=== PATIENT | female | born 1985 | race Caucasian/White ===

== ENCOUNTER → 2021-01-06 11:24 | Outpatient (CLI) | payer OTHER, SELFPAY ==
--- NOTE | ~2021-01-06 | US_ITS ---
EXAMINATION: US pelvic complete DATE: 01/06/2021 11:50 INDICATION: Abnormal uterine bleeding TECHNIQUE: Multiple transabdominal sonographic images of the pelvis were obtained. COMPARISON: None. FINDINGS: The uterus measures 8.5 x 3.1 x 4.9 cm. The endometrial complex measures 7 mm. The right ov [place] measures 2.5 x 1.6 x 1.7 cm. The left ovary measures 1.9 x 1.8 x 2 cm. There is normal vascular f low in the ovaries. There is no free fluid in the pelvis. IMPRESSION: 1. No sonographic correlate for the patient's symptoms. Reviewed, dictated and finalized at location A. [facility]
== END ==
PROVIDERS: Visit Provider Nurse Practitioner
DX: N93.8 Other specified abnormal uterine and vaginal bleeding (principal)
CPT/HCPCS: 76856

== ENCOUNTER → 2021-01-13 02:26 | Outpatient (CLI) | payer OTHER, SELFPAY ==
[2021-01-13 19:28] LABS: SARS-CoV-2 RNA PCR Negative
== END ==
PROVIDERS: Visit Provider Obstetrics & Gynecology Gynecology
DX: Z01.812 Encounter for preprocedural laboratory examination (principal); Z20.822 Contact with and (suspected) exposure to COVID-19
CPT/HCPCS: C9803; U0003; U0005

== ENCOUNTER 2021-01-16 01:48 | Day surgery (SDC) | payer OTHER, SELFPAY ==
[2021-01-04 13:31] VITALS: BMI 19.3
--- NOTE | 2021-01-13 14:43 | P.PNAN_ITS ---
Anes - Initial Pre Proc Eval Procedure: Operation Date: 01/16/21 08:30 Proposed Procedures p Hysteroscopy Dilation and Curettage - Dilma García MD Date/Time: 01/13/21 14:43 Surgeon: Dilma García MD Pre Op Diagnosis: abnormal uterine bleeding Patient Data Age: 35 Gender: F Height: 1.63 m Weight: 51 kg Allergies Allergy/AdvReac Type Severity Reaction Status Date / Time codeine Allergy Unknown Nausea and Verified 01/04/21 13:27 Vomiting Home Medications Medication Instructions Recorded Confirmed Type lamotrigine [Lamictal] 100 mg PO BID 10/31/19 01/04/21 History topiramate 50 mg PO BID 10/31/19 01/04/21 History levetiracetam 250 mg PO BID 01/04/21 01/04/21 History Patient hx anesthesia problems: none Family hx anesthesia problems: none [facility] Past Medical History Medical History (Updated 01/16/21 @ 07:00 by Riley Moran DO) Seizure grand mal - none since 2004 controlled with medication Surgical History Surgical History (Updated 01/13/21 @ 14:44 by Riley Moran DO) History of x2 History of tonsillectomy Social History Social History Smoking status: Never smoker Living arrangements: with family Spiritual care concerns: No Anes - Eval Final PreProcedure Day of Procedure 01/13/21 14:43 Patient weight: thin Heart: regular rate and rhythm Lungs: clear to auscultation and normal air movement Airway: Mallampati scale class II Neurological: alert and oriented Last oral intake: >/= 8 hours ASA classification: III Emergent: no Anesthetic plan: proceed Anesthesia type and monitoring: general GIVS and standard monitoring Informed Consent: The patient's anesthetic plan and its attendant risks and benefits were discussed with the patient/family/POA. Questions were solicited a nd answers provided to the satisfaction of the patient/family/POA.
[2021-01-16] MEDS: LACTATED RINGERS 1,000 ML 30 ML IV CONT (07:00)
[2021-01-16] MEDS: ACETAMINOPHEN 500 MG TABLET 1000 MG PO (07:00)
--- NOTE | 2021-01-16 07:22 | WPDHPUPDATE1 ---
History and Physical Update Update Date/Time: 01/16/21 07:22 History and Physical has been reviewed, including an updated exam of the patient. There are NO changes in the patient's condition. Risks, benefits, and alternatives have been discussed and questions answered. Patient agrees to proceed with procedure.
--- NOTE | 2021-01-16 07:22 | PM.HPGS ---
History of Present Illness History of Present Illness Consent: Risks, benefits, and alternatives have been discussed and questions answered. Patient agrees to proceed with procedure. Chief complaint: abnormal uterine bleeding Narrative: Berkley Hunt is a 35 year old female with abnormal menstrual cycles. She bleeds for approximately 9 to 14 days per month. Cycles are regular and bleeding is approximately 4 tampons per day. Pelvic ultrasound was performed and is normal. It is recommended to proceed with D&C hysteroscopy for further evaluation. Patient agrees to the plan and questions are answered. Risks of infection, bleeding, perforation, and possible pathology are reviewed. Review of Systems Review of Systems: Narrative: not repeated day of surgery; patient states no changes in status PMFSH Past Medical History Medical History (Updated 01/16/21 @ 07:24 by Dilma García MD) Seizure grand mal - none since 2004 controlled with medication Surgical History Surgical History (Updated 01/13/21 @ 14:44 by Riley Moran DO) History of x2 History of tonsillectomy Social History Social History Smoking status: Never smoker Living arrangements: with family Spiritual care concerns: No Meds Home Medications and Allergies Home Medications Medication Instructions Recorded Confirmed Type lamotrigine [Lamictal] 100 mg PO BID 10/31/19 01/04/21 History topiramate 50 mg PO BID 10/31/19 01/04/21 History levetiracetam 250 mg PO BID 01/04/21 01/04/21 History Allergies Allergy/AdvReac Type Severity Reaction Status Date / Time codeine Allergy Unknown Nausea and Verified 01/04/21 13:27 Vomiting Exam Const: General: healthy appearing and alert Orientation/consciousness: patient oriented x3 Resp: Effort & Inspection: normal respiratory effort Auscultation: clear to auscultation bilaterally Cardio: Rate: regular rate Rhythm: regular rhythm GI: GI Palp: Yes Soft to palpation, No Tenderness to palpation present (GI) and No Palpable mass present : External Female Exam: normal external appearance Speculum Exam - Vagina: normal appearance of the vagina and normal vaginal discharge Speculum Exam - Cervix: normal appearance of the cervix Bimanual exam- vagina & uterus: uterine size normal and consistency normal Bimanual Exam- Adnexa, other: normal adnexae and No adnexal tenderness Neuro: General: patient oriented x3 Assessment and Plan Assessment and plan (1) Menorrhagia: Code(s): N92.0 - Excessive and frequent menstruation with regular cycle Status: Acute Assessment and Plan: plan is to proceed with D&C hysteroscopy
[2021-01-16 07:54] VITALS: BP 106/64; PULSE 123; RESP 18; TEMP 37.5; O2SAT 100
--- NOTE | 2021-01-16 08:46 | P.OP_ITS ---
Procedure Note - Detailed Date of procedure: 01/16/21 Pre-op diagnosis: abnormal uterine bleeding Post-op diagnosis: same Procedure performed: D&C hysteroscopy Description of procedure: The patient was taken to the operating room placed under anesthesia in the dorsal lithotomy position. She was prepped and draped in the usual sterile fashion. [place] speculum was placed in the vagina and the cervix was grasped on the anterior lip with a tenaculum. Cervix is injected with 1% lidocaine in each quadrant. The uterus is sounded to 7cm. The cervix is serially dilated with Hegar. The diagnostic hysteroscope was placed with no abnormalities noted. The hysteroscope was removed and the medium sharp curette used to sharply curette the endometrium until a good uterine cry was noted in all areas. Minimal material is obtained. All instruments are removed. The patient is awakened from anesthesia and taken to recovery in stable condition. Sponge, needles, and instruments counts are correct. Anesthesia: MAC and local Surgeon: Dilma García MD Estimated blood loss (mL): 5 Drains: No Packing: No Pathology: yes (endometrial) Complications: No immediate complications Condition: stable Disposition: PACU Findings: uterus 7 cm; grossly normal appearing endometium
[2021-01-16 08:50] VITALS: BP 104/62; PULSE 94; RESP 14; O2SAT 100
[2021-01-16 09:20] VITALS: BP 90/62; PULSE 92; RESP 14
[2021-01-16] MEDS: KETOROLAC 30 MG/ML VIAL (*BKC) IV PUSH (09:35)
[2021-01-16 09:50] VITALS: BP 93/61; PULSE 90; RESP 14
== END 2021-01-16 10:00 | disposition home or self-care (01) ==
PROVIDERS: PCP Internal Medicine Infectious Disease; Visit Provider Obstetrics & Gynecology Gynecology
PROC: 0U5B8ZZ Destruction of Endometrium, Via Natural or Artificial Opening Endoscopic (ICD-10-PCS; CPT 58563; principal; 2021-01-16 08:30)
DX: N92.0 Excessive and frequent menstruation with regular cycle (principal)
CPT/HCPCS: 58558; 88305; A9270; C9803; J1885; J2250; J2704; J3010; J7030; J7120; U0003; U0005

== ENCOUNTER 2024-11-26 09:54 | Outpatient (CLI) | payer OTHER, SELFPAY ==
--- NOTE | ~2024-11-26 | US_ITS ---
EXAMINATION: US OB <= 14 weeks fetus DATE: 11/26/2024 10:14 INDICATION: Uncertain dating of during first trimester TECHNIQUE: Real-time pelvic ultrasound utilizing transabdominal probe was performed. The tito jacobo radiologist was not present for the study. COMPARISON: None. FINDINGS: The uterus measures 12.2 x 5.2 x 7.2 cm. There is an intrauterine gestational sac. A yolk sac and fe romana pole are identified. The crown rump length measures 1.7 cm, which correlates with an estimated ge stational age of 8 weeks and 0 days. heart motion is identified measuring 161 beats per minute (bpm) by M-mode Doppler. The right ovary measures 3.0 x 2.1 x 1.9 cm. The left ovary measures 5.2 x 2.7 x 2.6 cm. 5 couple ane choic cysts/follicles measuring up to 1.9 cm in the left ovary. There is no free fluid in the pelvis. IMPRESSION: 1. Single living fetus with heart rate of 161 bpm. 2. Gestational age by ultrasound of 8 weeks 0 day(s) +/- 5 day(s) with ultrasound estimated date of delivery ([facility]) of 07/08/2025. Reviewed, dictated and finalized at location B. [facility] CAREGIVER IMPRESSION: 1. Single living fetus with heart rate of 161 bpm. 2. Gestational age by ultrasound of 8 weeks 0 day(s) +/- 5 day(s) with ultraso und estimated date of delivery ([facility]) of 07/08/2025.
== END 2024-11-26 09:55 | disposition home or self-care (01) ==
PROVIDERS: PCP Obstetrics & Gynecology Gynecology; Visit Provider Obstetrics & Gynecology Gynecology
DX: Z36.87 Encounter for antenatal screening for uncertain dates (principal); Z3A.08 8 weeks gestation of pregnancy
CPT/HCPCS: 76801

== ENCOUNTER 2025-06-29 10:22 | Outpatient (CLI) | payer OTHER, SELFPAY ==
--- OUTSIDE RECORDS SUMMARY | 2025-06-29 11:00 | XMS_ITS | Encounter Summary ---
Author Organization [facility] Address [address] [place] [address] Phone Care Team Providers Care Diesel Locomotive Engineer Name Role Phone Kyree Garcia MD Primary Care Provider [phone] Harvey Coppola MD Primary Care Provider [phone]- [phone] Encounter Details Date Type Department Care Team (Late st Contact Info) Description 06/17/2017 Orders Only [facility] [address] [place] [address] Kyree Garcia MD [address] [address] Routine general medical examination at a health care facility (Primary Dx) Social History Tobacco Use Types Packs/Day Years Used Date Smoking Tobacco: Never Assessed Comments Unknown Sex and Gender Information Value Date Recorded Sex Assigned at Not on file 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 Gender Identity Not on file Sexual Orientation Not on file documented as of this encounter Plan of Treatment Not on file documented as of this encounter Procedures Procedure Name Priority Date/Time Associated Diagnosis Comments CBC WITH AUTO DIFFERENTIAL Routine 01/29/2018 7:40 AM CDT Routine general medical examination at a health care facility VITAMIN B12 Routine 01/29/2018 7:40 AM CDT Routine general medical examination at a health care facility LIPID PANEL Routine 01/29/2018 7:40 AM CDT Routine general medical examination at a [facility] care facility COMPREHENSIVE METABOLIC PANEL Routine 01/29/2018 7:40 AM CDT Routine general medical examination at a [facility] facility documented in this encounter Results * Vitamin B12 (01/29/2018 7:40 AM CDT) Vitamin B12 409 200 - 1,100 pg/mL [facility] Blood specimen (specimen) 01/29/2018 7:40 AM CDT 01/29/2018 7:41 AM CDT Narrative [facility] - 01/30/2018 2:38 AM CDT FASTING:YES FASTING: YES Resulting Agency Comment Performing Organization Information: Site ID: [id number] Name: [facility] Address: [address] [place] [id number] Director: Harvey Baum D.O., MPH us Kyree Garcia MD LAB BLOOD ORDERABLES Final Result [facility] [place], [place] * Lipid panel (01/29/2018 7:40 AM CDT) Pathologist [facility] Cholesterol 182 <200 mg/dL [facility] [place] HDL 92 >50 mg/dL [facility] Triglycerides 59 <150 mg/dL [facility] [place] LDL 76 mg/dL (calc) [facility] Comment: Reference range: <100 Desirable range <100 mg/dL for patients with CHD or diabetes and <70 mg/dL for diabetic patients with known heart disease. LDL-C is now calculated using the Andrae-Steven calculation, which is a validated novel method providing better accuracy than the Friedewald equation in the estimation of LDL-C. Andrae SS et al. CASTRO. 2013;310(19): 8371-8508 (http://education.GateGuru/faq/ZAS051) Chol/HDL ratio 2.0 <5.0 (calc) [facility] [place] Non-HDL, (LDL+VLDL) 90 <130 mg/dL (calc) [facility] [place] Comment: For patients with diabetes plus 1 major ASCVD risk factor, treating to a non-HDL-C goal of <100 mg/dL (LDL-C of <70 mg/dL) is considered a therapeutic option. Blood specimen (specimen) 01/29/2018 7:40 AM CDT 01/29/2018 7:41 AM CDT Narrative [facility] - 01/30/2018 2:38 AM CDT FASTING:YES FASTING: YES Resulting Agency Comment Performing Organization Information: Site ID: [id number] Name: [facility] Address: [address] [place] [address] Director: Harvey Baum D.O., MPH us Kyree Garcia MD LAB BLOOD ORDERABLES Final Result [facility] [place] Garcia * (ABNORMAL) Comprehensive metabolic panel (01/29/2018 7:40 AM CDT) Glucose 78 65 - 99 mg/dL [facility] [place] Comment: Fasting reference interval BUN 19 7 - 25 mg/dL [facility] [place] Creatinine 0.82 0.50 - 1.10 mg/dL [facility] [place] eGFR NON-AFR. AUSTRIAN 95 > OR = 60 mL/min/1. 73m2 [facility] [place] EGFR 111 > OR = 60 mL/min/1. 73m2 [facility] [place] BUN/creat ratio NOT APPLICABLE 6 - 22 (calc) [facility] [place] Sodium 140 135 - 146 mmol/L [facility] [place] Potassium, pl 4.1 3.5 - 5.3 mmol/L [facility] [place] Chloride 109 98 - 110 mmol/L [facility] [place] CO2 24 20 - 31 mmol/L [facility] [place] Calcium 9.7 8.6 - 10.2 mg/dL [facility] [place] Protein, sr 7.9 6.1 - 8.1 g/dL [facility] [place] Albumin 5.2(H) 3.6 - 5.1 g/dL [facility] [place] GLOBULIN 2.7 1.9 - 3.7 g/dL (calc) [facility] [place] Alb/glob ratio 1.9 1.0 - 2.5 (calc) [facility] [place] Bilirubin, total 0.4 0.2 - 1.2 mg/dL [facility] [place] Alk phos 88 33 - 115 U/L [facility] [place] AST 24 10 - 30 U/L [facility] [place] ALT (SGPT) 28 6 - 29 U/L [facility] [place] Blood specimen (specimen) 01/29/2018 7:40 AM CDT 01/29/2018 7:41 AM CDT Narrative [facility] - 01/30/2018 2:38 AM CDT FASTING:YES FASTING: YES Resulting Agency Comment Performing Organization Information: Site ID: [id number] Name: [employer] [facility] Address: [address] [address] Director: Harvey Baum D.O., MPH us Kyree Garcia MD LAB BLOOD ORDERABLES Final Result [facility] [place] Garcia * (ABNORMAL) CBC with auto differential (01/29/2018 7:40 AM CDT) WBC 3.6(L) 3.8 - 10.8 Thousand/ uL [facility] [place] RBC, POC 4.52 3.80 - 5.10 Million/u L [facility] [place] Hgb 13.4 11.7 - 15.5 g/dL [facility] [place] Hct 40.6 35.0 - 45.0 % [facility] [place] MCV 89.8 80.0 - 100.0 fL [facility] [place] MCH 29.6 27.0 - 33.0 pg [facility] [place] MCHC 33.0 32.0 - 36.0 g/dL [facility] [place] Rdw 12.7 11.0 - 15.0 % [facility] [place] Platelets 195 140 - 400 Thousand/ uL [facility] [place] MPV 10.3 7.5 - 12.5 fL [facility] [place] Neutrophils, abs 1,692 1,500 - 7,800 cells/uL [facility] [place] Neutrophil bands, abs CANCELED 0 - 750 cells/uL [facility] [place] Comment:Result canceled by t he ancillary Metamyelocytes, abs CANCELED 0 cells/uL [facility] [place] Comment:Result canceled by t he ancillary Absolute Myelocytes CANCELED 0 cells/uL [facility] [place] Comment:Result canceled by t he ancillary Promyelocytes, abs CANCELED 0 cells/uL [facility] [place] Comment:Result canceled by t he ancillary Lymphocytes, abs 1,357 850 - 3,900 cells/uL [facility] [place] Monocyte abs 439 200 - 950 cells/uL [facility] [place] Eosinophils, abs 90 15 - 500 cells/uL [facility] [place] Basophils, abs 22 0 - 200 cells/uL [facility] [place] Blast, cell CANCELED 0 cells/uL [facility] [place] Comment:Result canceled by t he ancillary NRBC abs CANCELED 0 cells/uL [facility] [place] Comment:Result canceled by t he ancillary Neutrophils 47 % [facility] [place] Neutrophilic bands CANCELED % [facility] [place] Comment:Result canceled by t he ancillary Metamyelocyte pct CANCELED % [facility] [place] Comment:Result canceled by t he ancillary Myelocyte pct CANCELED % [facility] [place] Comment:Result canceled by t he ancillary Promyelocyte pct CANCELED % [facility] [place] Comment:Result canceled by t he ancillary Lymphocyte pct 37.7 % [facility] [place] Reactive lymph CANCELED 0 - 10 % [facility] [place] Comment:Result canceled by t he ancillary Monocytes 12.2 % [facility] [place] Eosinophils 2.5 % [facility] [place] Basophils 0.6 % [facility] [place] Blast pct CANCELED % [facility] [place] Comment:Result canceled by t he ancillary NRBC CANCELED 0 /100 WBC [facility] [place] Comment:Result canceled by t he ancillary Comment CANCELED [facility] [place] Comment:Result canceled by t he ancillary Blood specimen (specimen) 01/29/2018 7:40 AM CDT 01/29/2018 7:41 AM CDT Narrative [facility] - 01/30/2018 2:38 AM CDT FASTING:YES FASTING: YES Resulting Agency Comment Performing Organization Information: Site ID: [id number] Name: [facility] Address: [address] [address] Director: Harvey Baum D.O., MPH us Kyree Garcia MD LAB BLOOD ORDERABLES Final Result [facility] [place] documented in this encounter Visit Diagnoses Diagnosis Routine general medical examination at a health care facility- Primary documented in this encounter Care Teams Diesel Locomotive Engineer Relationship Specialty Start Date End Date Kyree Garcia MD [address] [place] [address] PCP - General 09/15/15 04/01/23 Harvey Coppola MD [address] [place] [address] PCP - General Internal Medicine 04/02/23 documented as of this encounter
--- OUTSIDE RECORDS SUMMARY | 2025-06-29 11:00 | XMS_ITS | Clinical Summary ---
Author Organization [facility] [address] Address [address] [place] [address] Phone Care Team Providers Care Sales Operations Coordinator Name Role Phone Harvey Coppola MD Primary Care Provider [phone] Allergies Active Allergy Reactions Criticality Noted Date Comments Codeine Medications levETIRAcetam (KEPPRA) 500 mg tablet Take 1 tablet (500 mg total) by mouth 2 (two) times a day 180 tablet 1 04/21/2025 Active lamoTRIgine (LaMICtal) 100 mg tabletIndicatio ns:Generalized tonic clonic epilepsy (HCC) Take 3.5 tablets (350 mg total) by mouth 2 (two) times a day 630 tablet 05/18/2025 5 Active Active Problems Problem Noted Date Diagnosed Date Encounter for preventive health examination 01/26 Assessment & Plan (04/28/2024 10:14 AM CDT): 38-year-old for annual exam she feels well the been no significant health changes since her last visit with me. Patient is current with a gynecological exam. Request a hepatitis-C antibody at this time Assessment & Plan (04/22/2023 10:51 AM CDT): 37-year-old lady here for annual exam. Advised me she is not seen a physician for approximate 5 years.. Medical history significant for seizures starting in his teens approximate 16-17 years old. And she also has essential/familial tremor management of seizures through [facility]. Patient is very stable no recent seizures since onset in her mid teen years. This patient has not had any lab work in the last 5 years. 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 Dr. 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 On antiseizure medication that may benefit her tremors. Encounters Date Type Department Care Team Description 04/26/2025 Telephone [facility] Medicine Epilepsy [address]th [place] [address] [place] [address] Juan Neri MD PhD from Last 3 Months Immunizations Immunization Administration Dates Next Due Influenza, Quadrivalent, Spl it, Preservative Free, Intramuscular 08/22/2021,08/04/2019,08/21/2018 Influenza, Trivalent, IM (MDV) 07/11/2016,2013,08/21/2012 Influenza, Unspecified 07/28/2023(Deferr ed: Patient decision),07/20/2020,08/03/2019 Tdap 04/27/2024 Social History Tobacco Use Types Packs/Day Years Used Date Smoking Tobacco: Never Smokeless Tobacco: Never Tobacco Cessation:Counseling Given: Not Answered PHQ-2 Answer Date Recorded PHQ-2 Total Score (If total score is 3 or more points, staff should administer the PHQ-9) 0 04/27/2024 Comments Unknown Sex and Gender Information Value Date Recorded Sex Assigned at Not on file 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 Gender Identity Not on file Sexual Orientation Not on file Obstetrics History Last Filed Vital Signs Vital Sign Reading Time Taken Comments Blood Pressure 106/58 04/27/2024 11:43 AM CDT Pulse 89 04/27/2024 11:43 AM CDT Temperature 36.2 C (97.1 F) 04/27/2024 11:43 AM CDT Respiratory Rate 16 04/27/2024 11:43 AM CDT Oxygen Saturation 97% 04/27/2024 11:43 AM CDT Inhaled Oxygen Concentration - - Weight 53.3 kg (117 lb 9.6 oz) 04/27/2024 11:43 AM CDT Height 162.6 cm (5' 4) 04/27/2024 11:43 AM CDT Body Mass Index 20.19 04/27/2024 11:43 AM CDT Plan of Treatment Health Maintenance Due Date Last Done Comments Cervical Cancer Screening 1986 Varicella Vaccines (1 of 2 - 13+ 2-dose series) 1999 Hepatitis B Screening 2004 HPV Vaccines (1 - 3-dose SCDM series) 2013 Depression Screening 04/27/2025 04/27/2024, 04/22/20 23 Regular Well Visit/Exam 18-64 04/27/2025 04/27/2024, 04/22/2023, 02/07/2018 Covid-19 Vaccine ( season) 2025 12/16/2020, 11/17/2020 Influenza Vaccine (#1) 2025 , 07/20/2020, 08/04/2019, Additional history exists DTaP/Tdap/Td Vaccine (2 - Td or Tdap) 04/27/2034 04/27/2024 Hepatitis C Screening Completed 04/27/2024 Pneumococcal vaccine <65 Aged Out No longer eligible based on patient's age to complete this topic Procedures Procedure Name Priority Date/Time Associated Diagnosis Comments LAMOTRIGINE LEVEL Routine 05/10/2025 8:0 4 AM CDT Generalized tonic clonic epilepsy (HCC) LEVETIRACETAM LEVEL Routine 05/10/2025 8 :02 AM CDT Generalized tonic clonic epilepsy (HCC) LAMOTRIGINE LEVEL Routine 04/16/2025 11: 26 AM CDT Generalized tonic clonic epilepsy (HCC) LEVETIRACETAM LEVEL Routine 04/16/2025 1 1:23 AM CDT Generalized tonic clonic epilepsy (HCC) HEPATITIS C ANTIBODY Routine 04/27/2024 1:14 PM CDT Encounter for hepatitis C screening test for low risk patient from Last 3 Months or Most Recently Relevant to Health Maintenance Results * Lamotrigine level (05/10/2025 8:04 AM CDT) LAMOTRIGINE 4.9 2.5 - 15.0 mcg/mL [facility] Comment: (Note) This test was developed and its analytical performance characteristics have been determined by [facility]. It has not been cleared or approved by the FDA. This assay has been validated pursuant to the CLIA regulations and is used for clinical purposes. [facility] [address] [facility] [address] [facility] [address] Francisco Javier Avilez MD, PhD Blood 05/10/2025 8:04 AM CDT 05/10/2025 8:04 AM CDT us Juan Neri MD PhD LAB BLOOD ORDERABLES Elly fuller Result [facility] [address] [facility] [address] [place] [address] * Levetiracetam level (05/10/2025 8:02 AM CDT) LEVETIRACETAM 15.4 mcg/mL [facility] Comment: Reference Range: 12.0-46.0 Toxic level is not well established. Interpretation should include a clinical evaluation. For additional information, please refer to http://education.[employer]/faq/XGJ445 (This link is being provided for informational/educational purposes only.) This test was developed and its analytical performance characteristics have been determined by [facility]. It has not been cleared or approved by the FDA. This assay has been validated pursuant to the CLIA regulations and is used for clinical purposes. Blood 05/10/2025 8:02 AM CDT 05/10/2025 8:02 AM CDT Narrative [facility] - 05/14/2025 4:47 PM CDT FASTING:NO FASTING: NO us Juan Neri MD PhD LAB BLOOD ORDERABLES Elly l Result Performing Organization Address City/[facility]/ZIP Co de Phone Number [facility] [address] [facility] [address] [place] [address] * Lamotrigine level (04/16/2025 11:26 AM CDT) LAMOTRIGINE 4.8 2.5 - 15.0 mcg/mL [facility] Comment: (Note) This test was developed and its analytical performance characteristics have been determined by [facility]. It has not been cleared or approved by the FDA. This assay has been validated pursuant to the CLIA regulations and is used for clinical purposes. [facility] fusion [address] [place] [address],[address] [place] [address] Francisco Javier Avilez MD, PhD Blood 04/16/2025 11:2 6 AM CDT 04/16/2025 11:26 AM CDT us Juan Neri MD PhD LAB BLOOD ORDERABLES Elly l Result [facility] [address] [place] [address], [address] [place] [address] * (ABNORMAL) Levetiracetam level (04/16/2025 11:23 AM CDT) LEVETIRACETAM 8.8(L) mcg/mL [facility] Comment: Reference Range: 12.0-46.0 Toxic level is not well established. Interpretation should include a clinical evaluation. For additional information, please refer to http://education.Sravnikupi/faq/GLB712 (This link is being provided for informational/educational purposes only.) This test was developed and its analytical performance characteristics have been determined by [facility]. It has not been cleared or approved by the FDA. This assay has been validated pursuant to the CLIA regulations and is used for clinical purposes. Blood 04/16/2025 11:2 3 AM CDT 04/16/2025 11:23 AM CDT Juan Neri MD PhD LAB BLOOD ORDERABLES Elly l Result Performing Organization Address [facility] Co de Phone Number [facility]Jillian Castelan [address] [facility], [facility] [address] [place] [address] * Hepatitis C antibody Blood (04/27/2024 1:14 PM CDT) Hep C Ab Nonreactive Nonreactive Comment: Interpretive Data Nonreactive: Antibodies to HCV not detected. Does NOT exclude the possibility of recent exposure to HCV. Equivocal: Equivocal for HCV antibodies. Supplemental molecular testing will be automatically performed to determine infection status in accordance with current CDC screening recommendations. Reactive: Positive for HCV antibodies. This may represent current or past HCV infection. Supplemental molecular testing will be automatically performed to determine current infection status in accordance with current CDC screening recommendations. Interpretive data was last revised on 2020. Testing performed by: [facility], [address] [place] [address], [place]., [address] Blood 04/27/2024 1:14 PM CDT 04/27/2024 6:36 PM CDT Harvey Coppola MD LAB MICROBIOLOGY - GENERAL ORDERABLES Edited Result - Final Performing Organization Address City/[facility] Co de Phone Number [facility] [address] [facility] [place] [address] from Last 3 Months or Most Recently Relevant to Health Maintenance Insurance [facility] PPO [facility]PO [facility] [place] [place] [address] CHOICE PLUS [facility] CHOICE PLUS Care Teams Sales Operations Coordinator Relationship Specialty Start Date End Date Harvey Coppola MD [phone] (work) PCP - General Internal Medicine 04/02/23
--- OUTSIDE RECORDS SUMMARY | 2025-06-29 11:00 | XMS_ITS | Clinical Summary ---
Author Organization [facility] Address [address] [place] [address] Phone Care Team Providers Care Chief Security And Safety Officer Name Role Phone Kyree Garcia MD Primary Care Provider [phone] Encounters Date Type Department Care Team Description 06/16/2025 External Device Data ST[facility] ABSTRACTION Provider, Abstract 06/15/2025 External Device Data [facility] ABSTRACTION Provider, Abstract 06/01/2025 External Device Data [facility] [place]STRACTION Provider, Abstract 05/12/2025 External Device Data [facility] ABSTRACTION Provider, Abstract 05/12/2025 External Device Data [facility] ABSTRACTION Provider, Abstract 04/20/2025 External Device Data [facility] ABSTRACTION Provider, Abstract 04/13/2025 External Device Data [facility] ABSTRACTION Provider, Abstract from Last 3 Months Social History Tobacco Use Types Packs/Day Years Used Date Smoking Tobacco: Never Assessed Comments Unknown Sex and Gender Information Value Date Recorded Sex Assigned at Not on file 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 Gender Identity Not on file Sexual Orientation Not on file Plan of Treatment Health Maintenance Due Date Last Done Comments HEPATITIS B VACCINES (1 of 3 - 19+ 3-dose series) 2005 HPV/Cotest (21-29) 2007 HPV VACCINES (1 - 3-dose SCD M series) 2013 CERVICAL CANCER SCREENING 2016 HPV/Cotest (30-65) 2016 PAP SMEAR 2016 INFLUENZA VACCINE (#1) 2025 , 08/04/2019, 08/21/2018, Additional history exists DTAP/TDAP/TD VACCINES (2 - T d or Tdap) 04/27/2034 04/27/2024 Insurance [facility] [id number] Care Teams Chief Security And Safety Officer Relationship Specialty Start Date End Date Kyree Garcia MD [address] [place] [id number] PCP - General Internal Medicine 01/09/16
[2025-06-29 11:07] LABS: Hematocrit 37.2 % (37.0-47.0); Hemoglobin 12.3 g/dL (12.0-15.0); Mean Corpuscular HGB Conc 33.1 g/dl (32-36); Mean Corpuscular Hemoglobin 31.7 pg (26-34); Mean Corpuscular Volume 95.9 fl (80-100); Platelet Count Result 147 k/mm3 (150-375); Red Blood Count 3.88 M/mm3 (4.2-5.4); White Blood Count 8.7 K/mm3 (4.5-10.0)
[2025-06-29 11:57] LABS: Syphilis IgG/IgM Antibody Non-Reactive (Nonreactive)
== END 2025-06-29 10:23 | disposition home or self-care (01) ==
LOC: ANHLAB 10:28
PROVIDERS: PCP Obstetrics & Gynecology Gynecology; Visit Provider Obstetrics & Gynecology Gynecology
DX: Z01.812 Encounter for preprocedural laboratory examination (principal)
CPT/HCPCS: 36415; 85027; 86593; 86850; 86900; 86901

== ENCOUNTER 2025-06-30 05:21 | Inpatient (IN) | payer OTHER, SELFPAY ==
--- NOTE | 2025-06-23 06:56 | PM.IMHP ---
H&P: HPI History of Present Illness Date/Time: 06/23/25 06:56 Chief Complaint: Term for repeat section Narrative: This is a 39-year-old 3 para 2 with 2 previous sections at 30 weeks gestation repeat section her been followed by Dr. london and has been uncomplicated. Review of Systems Review of Systems: not repeated day of surgery; patient states no changes in status PMFSH Past Medical History Medical History Seizure grand mal - none since 2004 controlled with medication Surgical History Surgical History History of x2 History of tonsillectomy Family History Family History Grandparent Breast cancer Grandparent Cerebrovascular accident Daughter Epilepsy Social History Social History Smoking status: Never smoker Substance use: never Living arrangements: with family Spiritual care concerns: No Meds Home Medications and Allergies Home Medications ?Medication ?Instructions ?Recorded ?Confirmed ?Type lamotrigine 100 mg tablet 350 mg PO BID 10/31/19 06/15/25 History (Lamictal) levetiracetam 250 mg tablet 750 mg PO BID 01/04/21 06/15/25 History aspirin 81 mg capsule 81 mg PO DAILY 06/15/25 06/15/25 History vit no.95-ferrous 1 tablet PO DAILY 06/15/25 06/15/25 History fumarate 28 mg-folic acid 800 mcg tablet () Allergies Allergy/AdvReac Type Severity Reaction Status Date / Time codeine AdvReac Unknown Nausea and Verified 06/15/25 12:39 Vomiting Exam Const: General: cooperative, healthy appearing and comfortable Nutritional Appearance: average body habitus Orientation/consciousness: oriented to person, oriented to place and oriented to time HENMT: Head: normal to inspection Resp: Effort & Inspection: normal respiratory effort Cardio: Rate: regular rate Rhythm: regular rhythm Heart sounds: S1 normal heart sound present and S2 normal heart sound present GI: Inspection: normal to inspection (Gravid soft uterus) : External Female Exam: normal external appearance Assessment and Plan Assessment and plan (1) Term : Code(s): Z34.90 - Encounter for supervision of normal , unspecified, unspecified trimester Status: Acute Plan Proceed with repeat low-transverse section
[2025-06-30] VITALS (79 sets, daily range): BP systolic 96–118; BP diastolic 52–86; PULSE 63–112; RESP 16–20; TEMP 36.4–37; O2SAT 95–100; BMI 28.1
--- NOTE | 2025-06-30 05:28 | WPDHPUPDATE1 ---
History and Physical Update Update Date/Time: 06/30/25 05:28 History and Physical has been reviewed, including an updated exam of the patient. There are NO changes in the patient's condition. Risks, benefits, and alternatives have been discussed and questions answered. Patient agrees to proceed with procedure.
--- OUTSIDE RECORDS SUMMARY | 2025-06-30 05:28 | XMS_ITS | Encounter Summary ---
Author Organization [facility] Address [address] [place] [address] Phone Care Team Providers Care Crystal Calibrator Name Role Phone Kyree Garcia MD Primary Care Provider [phone] Harvey Coppola MD Primary Care Provider [phone] Encounter Details Date Type Department Care Team (Late st Contact Info) Description 06/17/2017 Orders Only [facility] [address] [place] [address] Kyree Garcia MD [address] [address] Routine general medical examination at a health care facility (Primary Dx) Social History Tobacco Use Types Packs/Day Years Used Date Smoking Tobacco: Never Assessed Comments Unknown Sex and Gender Information Value Date Recorded Sex Assigned at Not on file 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 Gender Identity Not on file Sexual Orientation [...] CDT Routine general medical examination at a [facility] care facility COMPREHENSIVE METABOLIC PANEL Routine 01/29/2018 7:40 AM CDT Routine general medical examination at a [facility] facility documented in this encounter Results * Vitamin B12 (01/29/2018 7:40 AM CDT) Vitamin B12 409 200 - 1,100 pg/mL [facility] Blood specimen (specimen) 01/29/2018 7:40 AM CDT 01/29/2018 7:41 AM CDT Narrative [facility] - 01/30/2018 2:38 AM CDT FASTING:YES FASTING: YES Resulting Agency Comment Performing Organization Information: Site ID: [place] Name: [facility] Address: [address] [place] [address] Director: Harvey Baum D.O., MPH us Kyree Garcia MD LAB BLOOD ORDERABLES Final Result [facility] [email or web address] [place], [place] * Lipid panel (01/29/2018 7:40 AM CDT) Pathologist [facility] Cholesterol 182 <200 mg/dL [facility] [place] HDL 92 >50 mg/dL [facility] Triglycerides 59 <150 mg/dL [facility] [place] LDL 76 mg/dL (calc) [facility] Comment: Reference range: <100 Desirable range <100 mg/dL for patients with CHD or diabetes and <70 mg/dL for diabetic patients with known heart disease. LDL-C is now calculated using the Andrae-Steven calculation, which is a validated novel method providing better accuracy than the Friedewald equation in the estimation of LDL-C. Andrae SS et al. CASTRO. 2013;310(19): 2855-8267 (http://education.ImageBrief/faq/CYG477) Chol/HDL ratio 2.0 <5.0 (calc) [facility] [place] Non-HDL, (LDL+VLDL) 90 <130 mg/dL (calc) [facility] [place] Comment: For patients with diabetes plus 1 major ASCVD risk factor, treating to a non-HDL-C goal of <100 mg/dL (LDL-C of <70 mg/dL) is considered a therapeutic option. Blood specimen (specimen) 01/29/2018 7:40 AM CDT 01/29/2018 7:41 AM CDT Narrative [facility] - 01/30/2018 2:38 AM CDT FASTING:YES FASTING: YES Resulting Agency Comment Performing Organization Information: Site ID: [place] Name: [facility] Address: [address] [place] [address] Director: Harvey Baum D.O., MPH us Kyree Garcia MD LAB BLOOD ORDERABLES Final Result [facility] [place] Garcia * (ABNORMAL) Comprehensive metabolic panel (01/29/2018 7:40 AM CDT) Glucose 78 65 - 99 mg/dL [facility] [place] Comment: Fasting reference interval BUN 19 7 - 25 mg/dL [facility] [place] Creatinine 0.82 0.50 - 1.10 mg/dL [facility] [place] eGFR NON-AFR. SOMALI 95 > OR = 60 mL/min/1. 73m2 [facility] [place] EGFR 111 > OR = 60 mL/min/1. 73m2 [facility] [place] BUN/creat ratio NOT APPLICABLE [...] Performing Organization Information: Site ID: [place] Name: [facility] Address: [address] [place] [address] Director: Harvey Baum D.O., MPH us Kyree Garcia MD LAB BLOOD ORDERABLES Final Result [facility] [place] Garcia * (ABNORMAL) [...] Agency Comment Performing Organization Information: Site ID: [place] Name: [facility] Address: [address] [address] Director: Harvey Baum D.O., MPH us Kyree Garcia MD LAB BLOOD ORDERABLES Final Result [facility] [place] documented in this encounter Visit Diagnoses Diagnosis Routine general medical examination at a health care facility- Primary documented in this encounter Care Teams Crystal Calibrator Relationship Specialty Start Date End Date Kyree Garcia MD [address] [place] [address] PCP - General 09/15/15 04/01/23 Harvey Coppola MD [address] [place] [address] PCP - General Internal Medicine 04/02/23 documented as of this encounter
--- OUTSIDE RECORDS SUMMARY | 2025-06-30 05:28 | XMS_ITS | Clinical Summary ---
Author Organization [facility] [address] Address [address] [place] [address] Phone Care Team Providers Care Tilting Saw Operator Name Role Phone Harvey Coppola MD Primary Care Provider [phone] Allergies Active Allergy Reactions Criticality Noted Date [...] has essential/familial tremor management of seizures through [facility]. 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 It has not been cleared or approved by the FDA. This assay has been validated pursuant to the CLIA regulations and is used for clinical purposes. [facility] [address] [facility] [facility] [address] [facility] [address] Francisco Javier Avilez MD, PhD Blood 05/10/2025 8:04 AM CDT 05/10/2025 8:04 AM CDT us Juan Neri MD PhD LAB BLOOD ORDERABLES Elly fuller Result [facility] [address] [facility] [facility] [address] [place] [address] * Levetiracetam level (05/10/2025 8:02 AM CDT) LEVETIRACETAM 15.4 mcg/mL [facility] Comment: Reference Range: 12.0-46.0 Toxic level is not well established. Interpretation should include a clinical evaluation. For additional information, please refer to http://education.Priceza.Certpoint Systems/faq/CVX582 (This link is being provided for informational/educational purposes only.) This test was developed and its analytical performance characteristics have been determined by [facility]. It has not been cleared or approved by the FDA. This assay has been validated pursuant to the CLIA regulations and is used for clinical purposes. Blood 05/10/2025 8:02 AM CDT 05/10/2025 8:02 AM CDT Narrative [facility] - 05/14/2025 4:47 PM CDT FASTING:NO FASTING: NO us Juan Neri MD PhD LAB BLOOD ORDERABLES Elly l Result Performing Organization Address City/[facility]/ZIP Co de Phone Number [facility] [address] [facility] [address] [place] [address] * Lamotrigine level (04/16/2025 11:26 AM CDT) LAMOTRIGINE 4.8 2.5 - 15.0 mcg/mL [facility] Comment: (Note) This test was developed and its analytical performance characteristics have been determined by [facility]. It has not been cleared or approved by the FDA. This assay has been validated pursuant to the CLIA regulations and is used for clinical purposes. [facility] [address] [place] [address],[address] [place] [address] Francisco Javier Avilez MD, PhD Blood 04/16/2025 11:2 6 AM CDT 04/16/2025 11:26 AM CDT us Juan Neri MD PhD LAB BLOOD ORDERABLES Elly l Result [facility] [address] [place] [address], [address] [place] [address] * (ABNORMAL) Levetiracetam level (04/16/2025 11:23 AM CDT) LEVETIRACETAM 8.8(L) mcg/mL [facility] Comment: Reference Range: 12.0-46.0 Toxic level is not well established. Interpretation should include a clinical evaluation. For additional information, please refer to http://education.[employer]/faq/UPO132 (This link is being provided for informational/educational purposes only.) This test was developed and its analytical performance characteristics have been determined by [facility]. It has not been cleared or approved by the FDA. This assay has been validated pursuant to the CLIA regulations and is used for clinical purposes. Blood 04/16/2025 11:2 3 AM CDT 04/16/2025 11:23 AM CDT Juan Neri MD PhD LAB BLOOD ORDERABLES Elly l Result Performing Organization Address [facility] Co de Phone Number [facility] [address] [facility], [facility] [address] [place] [address] * Hepatitis C antibody Blood (04/27/2024 1:14 [...] last revised on 2020. Testing performed by: [facility], [address] [place] [address], [place] [address] Blood 04/27/2024 1:14 PM CDT 04/27/2024 6:36 PM CDT Harvey Coppola MD LAB MICROBIOLOGY - GENERAL ORDERABLES Edited Result - Final Performing Organization Address City/[facility] Co de Phone Number [facility] [address] [facility] Department [place] [address] from Last 3 Months or Most Recently Relevant to Health Maintenance Insurance [facility] PPO [facility] PPO [facility] [place] [address] CHOICE PLUS [facility] CHO[facility] PLUS Care Teams Tilting Saw Operator Relationship Specialty Start Date End Date Harvey Coppola MD [phone] (work) PCP - General Internal Medicine 04/02/23
--- OUTSIDE RECORDS SUMMARY | 2025-06-30 05:28 | XMS_ITS ---
Author Organization [facility] Ce[facility] Source Produ ction (ClinicalSummary Clone) Address Unknown Care Team Providers Care Mixing Picker Tender Name Role Phone Unavailable Primary Care Physician Unavailab le Results * [UNITY] ANEUPLOIDY NIPT Performed by: [employer] Component Value Range Date Fraction 11.7% 12/29/2024 10 :12 pm UTC Sex Chromosome Aneuploidy NOT DETECTED 10:12 pm UTC Monosomy X LOW RISK <1 in 10,000 2024 10:12 pm UTC Trisomy 13 LOW RISK <1 in 10,000 2024 10:12 pm UTC Trisomy 18 LOW RISK <1 in 10,000 2024 10:12 pm UTC Trisomy 21 LOW RISK <1 in 10,000 2024 10:12 pm UTC Sex FEMALE 12/29/2024 10:1 2 pm UTC Gestation GONZALEZ 12/30/19 10:12 pm UTC For detailed report, see PDF See PDF 12/29/2024 10:12 pm UTC 12/29/2024 10:1 2 pm UTC Social History Observation Value Start Date End Date
--- OUTSIDE RECORDS SUMMARY | 2025-06-30 05:28 | XMS_ITS | Clinical Summary ---
Author Organization 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
--- OUTSIDE RECORDS SUMMARY | 2025-06-30 05:28 | XMS_ITS ---
Author Organization [facility] Source Produ ction (ClinicalSummary Clone) Address Unknown Care Team Providers Care [place] Worker Name Role Phone Unavailable Primary Care Physician Unavailab le Results * [UNITY] CARRIER SCREEN Performed by: [employer] Ascending Component Value Range Date Sickle Cell Disease/Beta-Thalassemia/Hemo globinopathies carrier screen NEGATIVE 01/02/2025 12:06 am [facility] Alpha-Thalassemia carrier screen NEGATIVE 01/02/2025 12:06 am [facility] Cystic Fibrosis carrier screen NEGATIVE 01/02/2025 12:06 am [facility] Spinal Muscular Atrophy carrier screen NEGATIVE 2 SMN1 copies, SNP not present 01/02/2025 12:06 am [facility] For detailed report, see PDF See PDF 01/02/2025 12:06 am [facility] 01/02/2025 12:0 6 am [facility] Social History Observation Value Start Date End Date
--- NOTE | 2025-06-30 06:02 | LDADM ---
This patient, Berkley Hunt, was admitted to Labor/Delivery/Recovery 120 on 06/30/25 at 05:21. Plans for labor, pain management and were discussed with patient. Patient/family oriented to hospital policies and general routines including ID bracelet, bed and alarms, visiting hours, pain management, procedures, bathroom and other care routines, personal items, smoking policy, room service/diet and guest tray routines, infant security routines, and visiting hours. Patient/Family are encouraged to report perceived risks to care and to ask questions if they do not understand what they are told or what they should do. See [facility]BI[facility] for further documentation.
[2025-06-30] MEDS: LACTATED RINGERS 1,000 ML 125 ML IV CONT (06:08)
[2025-06-30] MEDS: ACETAMINOPHEN 500 MG TABLET 1000 MG PO ×3 (06:25→19:28)
[2025-06-30] MEDS: ceFAZolin 2 GM in SODIUM CHLORIDE 0.9% IV 50 ML 100 ML IVPB (06:29)
[2025-06-30] MEDS: ONDANSETRON INJ 4 MG/2 ML VIAL IV PUSH (06:31)
[2025-06-30] MEDS: FAMOTIDINE 20 MG/2 ML VIAL IV PUSH (06:31)
--- NOTE | 2025-06-30 06:40 | WPDANESEPPF ---
Anes - Initial Pre Proc Eval Procedure: Operation Date: 06/30/25 07:30 Proposed Procedures p Repeat Section - Andre Potter MD Date/Time: 06/30/25 06:40 Surgeon: Dilma García MD Pre Op Diagnosis: Patient Data Age: 39 Gender: F Height: 1.63 m Weight: 74.5 kg Last Vital Signs Temp 36.7 C 06/30/25 05:39 Pulse 101 H 06/30/25 06:31 BP 115/74 06/30/25 06:31 Pulse Ox 96 06/30/25 06:36 O2 Del Method Room Air 06/30/25 05:44 Allergies Allergy/AdvReac Type Severity Reaction Status Date / Time codeine AdvReac Unknown Nausea and Verified 06/30/25 05:54 Vomiting Home Medications ?Medication ?Instructions ?Recorded ?Confirmed ?Type lamotrigine 100 mg tablet 350 mg PO BID 10/31/19 06/30/25 History (Lamictal) levetiracetam 250 mg tablet 750 mg PO BID 01/04/21 06/30/25 History aspirin 81 mg capsule 81 mg PO DAILY 06/15/25 06/30/25 History vit no.95-ferrous 1 tablet PO DAILY 06/15/25 06/30/25 History fumarate 28 mg-folic acid 800 mcg tablet () oxycodone-acetaminophen 5 mg-325 1 tablet PO Q4H PRN pain #20 tabs 06/30/25 Rx mg tablet (Endocet) Patient hx anesthesia problems: none Family hx anesthesia problems: none Results Review: All pre-operative results and documents have been reviewed as part of the pre-operative evaluation. 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 Surgical History Surgical History History of x2 History of tonsillectomy Family History Family History Grandparent Breast cancer Grandparent Cerebrovascular accident Daughter Epilepsy Social History Social History Smoking status: Never smoker Second hand tobacco smoke exposure: No Substance use: never Lack of Transportation: No Lack of Food: Never True Current Housing: I Have Housing Concerned About Future Housing: No Difficulty Paying Gas/Electric Bills: No Difficulty Paying for Meds: No Currently Unemployed: No Education: Bachelor's Degree Difficulty w/ Childcare or Family Care: No Living arrangements: with family Spiritual care concerns: No Anes - Eval Final PreProcedure Day of Procedure 06/30/25 06:40 Patient weight: obese Heart: regular rate and rhythm Lungs: clear to auscultation and normal air movement Airway: Mallampati scale class II Neurological: alert and oriented Last oral intake: >/= 8 hours ASA classification: III Emergent: no Anesthetic plan: proceed Anesthesia type and monitoring: regional spinal and standard monitoring Results Review: All pre-operative results and documents have been reviewed as part of the pre-operative evaluation. Informed Consent: The patient's anesthetic plan and its attendant risks and benefits were discussed with the patient/family/POA. Questions were solicited and answers provided to the satisfaction of the patient/family/POA.
--- NOTE | 2025-06-30 08:22 | P.PCNOB_ITS ---
OB - Delivery Note Procedure Delivery date: 06/30/25 Pre-op diagnosis: Previous Delivery Post-op Diagnosis: Same Induction method: None Delivery monitor: External FHT Prior to decision for section, ACOG/SMFM labor guidelines were considered and discussed with the patient and staff. Decision made to proceed with the section.: Yes Procedure Performed: Repeat Surgeon: Andre Potter MD Anesthesia type: Spinal Description of Procedure/Findings: Patient was admitted for repeat section at 39 weeks gestation was taken back prepped draped in normal sterile fashion placed in the supine position. Under excellent spinal anesthetic the previous Pfannenstiel incision was entered progressive layers of fascia. Fascia incised midline cure to recall fresh bilaterally. Underlying muscles sharply dissected. Parietal perineum 0 by Chio clamps and by sharp dissection carried superiorly and inferiorly dome of the bladder. Bladder flap formed. Bladder blade returned. A low transverse incision made head delivered in the MELISSA position. Anterior posterior shoulder delivered spontaneously cord clamped x2 cut infant passed of the table given Apgars of 9 [id number] 9 [id number]. Cord blood was drawn. Placenta delivered intact spontaneously. 20units Pitocin placed IV to help firm the uterus. After inspecting the uterus lining the uterus was closed with continuous running 0 Vicryl from lateral edge to lateral edge. This followed by 2nd imbricating running locking 0 Vicryl from lateral edge to lateral edge. Hemostasis was assured ovaries and tubes appeared within normal limits uterus returned the abd omen. The hysterotomy incision inspected 1 last time noted be hemostatic returned to the abdomen laps removed and accounted for fascia closed with continuous running 0 Vicryl from lateral edge to lateral edge. Irrigation subcutaneous layer and the skin closed with 4 Monocryl glue. All sponge, needle, instrument counts were correct. There were no immediate complications Drains: No Packing: No Pathology: None sent Complications: No immediate complications Condition: Stable Disposition: PACU Baby Date of : 06/30/25 Time of : 08:05 Gestational Age by Date: 39 Infant gender: Female Weight (pounds): 6 Weight (ounces): 12 presentation: vertex position: Right Occiput Anterior Placenta delivery description: Spontaneous Cord Vessel Description: 3 Vessels score one minute: 9 score five minutes: 9
--- NOTE | 2025-06-30 08:24 | P.DS_ITS ---
DS: Admitting Diagnosis Discharge Date 07/02/2025 Admitting Diagnosis Term plan/previous section DS: Discharge Diagnosis Discharge Diagnosis (1) Term : Code(s): Z34.90 - Encounter for supervision of normal , unspecified, unspecified trimester Status: Acute DS: Summary Hospital Course Reason for hospitalization: Patient was admitted for repeat low-transverse section on 06/30/2025. Hospital Course: Patient's hospital course unremarkable. She remained afebrile. She was up, voiding the div diet, ambulating, generally without complaints. Time Spent with Patient Time attestation: Total time spent providing and/or coordinating discharge services: Exam Const: General: cooperative, healthy appearing and comfortable Nutritional Appearance: average body habitus Orientation/consciousness: oriented to person, oriented to place and oriented to time HENMT: Head: normal to inspection Resp: Effort & Inspection: normal respiratory effort Cardio: Rate: regular rate Rhythm: regular rhythm Heart sounds: S1 normal heart sound present and S2 normal heart sound present GI: Inspection: normal to inspection (Gravid soft uterus) : External Female Exam: normal external appearance Discharge Plan Discharge Attending physician on discharge: Andre Vicente Discharging Clinician: Andre Vicente Patient Disposition: Home Activity: may shower, no straining and pelvic rest Diet: heart healthy Wound Care Instructions: follow printed instructions Patient Instructions: Antibiotic Form Patient Language: Icelandic Stand Alone Forms: General Discharge Information Follow-up/Referrals: Andre Vicente MD [Physician, [employer]EDGER] Discharge Medications: New oxycodone-acetaminophen [Endocet] 5-325 mg tablet 1 tablet PO Q4H PRN (Reason: pain) Qty: 20 0RF Continued lamotrigine [Lamictal] 100 mg Tablet 350 mg PO BID levetiracetam 250 mg tablet 750 mg PO BID PNV no.95-ferrous fumarate-FA [] 28 mg iron- 800 mcg tablet 1 tablet PO DAILY aspirin 81 mg capsule 81 mg PO DAILY Date of admission: 06/30/25 05:21 Primary Care Provider: Dilma García Admitting Provider: Dilma García Attending physician on admission: Dilma García Condition: Stable
[2025-06-30] MEDS: OXYTOCIN 30 UNITS/NS 500 ML 30 UNITS/500 ML BAG 125 UNITS IV CONT (09:13)
[2025-06-30] MEDS: KETOROLAC 15 MG/ML VIAL (*BKC) IV PUSH ×3 (09:13→19:25)
--- NOTE | 2025-06-30 11:18 | OBPPTRN ---
Patient transferred to post room #284 via stretcher. Support person present. Oriented to unit, room, information board, rooming in, admission packet and security measures. Patient verbalizes understanding.
[2025-06-30] MEDS: SIMETHICONE 80 MG TAB.CHEW PO ×2 (16:50→19:24)
[2025-06-30] MEDS: DOCUSATE SODIUM 100 MG CAPSULE PO (16:50)
[2025-06-30] MEDS: LIDOCAINE 5% PATCH 1 PATCH TRANSDERM (19:32)
[2025-07-01 01:20] VITALS: BP 114/69; PULSE 73; RESP 16; TEMP 36.1; O2SAT 100
[2025-07-01] MEDS: KETOROLAC 15 MG/ML VIAL (*BKC) IV PUSH (01:24)
[2025-07-01] MEDS: ACETAMINOPHEN 500 MG TABLET 1000 MG PO ×4 (01:26→19:42)
[2025-07-01 04:21] LABS: Hematocrit 32.5 % (37.0-47.0); Hemoglobin 10.6 g/dL (12.0-15.0); Immature Granulocyte Percent A 0.7 % (0-0.5); Lymphocytes Absolute Auto 1.32 K/mm3 (0.9-3.2); Mean Corpuscular HGB Conc 32.6 g/dl (32-36); Mean Corpuscular Hemoglobin 31.5 pg (26-34); Mean Corpuscular Volume 96.4 fl (80-100); Nucleated Red Blood Cells Absolute Auto 0.000 K/mm3 (0.0-0.012); Nucleated Red Blood Cells Perc 0.0 % (0.0-0.2); Platelet Count Result 130 k/mm3 (150-375); Red Blood Count 3.37 M/mm3 (4.2-5.4); White Blood Count 12.1 K/mm3 (4.5-10.0)
--- NOTE | 2025-07-01 07:39 | P.PNOB_ITS ---
OB - PN: Subj Subjective Date/time seen: 07/01/25 07:39 Patient comments: no complaints, pain well controlled, tolerating diet and flatus present [place] baby status: doing well OB - PN: Obj Data Labs 07/01/25 04:11 Labs: Laboratory Results - last 24 hr 07/01/25 04:11 WBC 12.1 H RBC 3.37 L Hgb 10.6 L Hct 32.5 L MCV 96.4 MCH 31.5 MCHC 32.6 RDW 14.2 Plt Count 130 L MPV 10.5 H Immature Gran % (Auto) 0.7 H Neut % (Auto) 80.9 H Lymph % (Auto) 10.9 L [place] % (Auto) 6.7 Eos % (Auto) 0.7 Baso % (Auto) 0.1 L Lymph # (Auto) 1.32 [place] # (Auto) 0.8 H Eos # (Auto) 0.1 Baso # (Auto) 0.0 Abs Immat Gran (auto) 0.08 H Absolute Neuts (auto) 9.8 H Absolute Nucleated RBC 0.000 Nucleated RBC % 0.0 OB - PN A/P Assessment and Plan (1) Term : Code(s): Z34.90 - Encounter for supervision of normal , unspecified, unspecified trimester Status: Acute Plan routine care Time Spent With Patient Time: Total time spent is greater than 50% in coordination of care (as documented) at patient's floor/unit and/or counseling patient: Review of Systems 2 Review of Systems: not repeated day of surgery; patient states no changes in status Exam 2 Const: General: cooperative, healthy appearing and comfortable Nutritional Appearance: average body habitus Orientation/consciousness: oriented to person, oriented to place and oriented to time HENMT: Head: normal to inspection Resp: Effort & Inspection: normal respiratory effort Cardio: Rate: regular rate Rhythm: regular rhythm Heart sounds: S1 normal heart sound present and S2 normal heart sound present GI: Inspection: normal to inspection (Gravid soft uterus) : External Female Exam: normal external appearance
[2025-07-01 07:45] VITALS: BP 102/55; PULSE 80; RESP 18; TEMP 37; O2SAT 98
[2025-07-01] MEDS: DOCUSATE SODIUM 100 MG CAPSULE PO ×2 (07:47→17:12)
[2025-07-01] MEDS: SIMETHICONE 80 MG TAB.CHEW PO ×3 (07:47→17:12)
[2025-07-01] MEDS: IBUPROFEN 600 MG TABLET PO ×3 (07:48→19:42)
--- NOTE | 2025-07-01 14:41 | WPDANLDNPN2 ---
Anes-Prog Note L&D-Neuraxial Date/Time: 07/01/25 14:41 Neuraxial medications: intrathecal PF morphine Patient feedback: Patient satisfied with post-operative pain management.
--- NOTE | 2025-07-01 14:41 | WPDANLDPN2 ---
Anes-Prog Note L&D Date/Time: 07/01/25 14:41 Comfortable throughout: section Neuraxial method: spinal Epidural/Spinal procedure site: clean & non-tender Neuro status: Neuro function grossly intact. Cardiovascular status: normal Respiratory status: normal Airway patency: baseline Mental status: baseline Vital Signs: Last Vital Signs Temp 37.0 C 07/01/25 07:45 Pulse 80 07/01/25 07:45 Resp 18 07/01/25 07:45 BP 102/55 L 07/01/25 07:45 Pulse Ox 98 07/01/25 07:45 O2 Del Method Room Air 06/30/25 19:26 Pain score (VAS): 2 I/O: Intake & Output 06/30/25 07/01/25 07/01/25 23:59 07:59 15:59 Intake Total 400 500 Output Total 1200 800 Balance -800 -300 Patient feedback: Patient satisfied with anesthetic care.
[2025-07-01] MEDS: LIDOCAINE 5% PATCH 1 PATCH TRANSDERM (19:43)
[2025-07-01 20:00] VITALS: BP 118/73; PULSE 84; RESP 17; TEMP 36.4; O2SAT 98
[2025-07-02] MEDS: ACETAMINOPHEN 500 MG TABLET 1000 MG PO ×2 (01:20→09:22)
[2025-07-02] MEDS: IBUPROFEN 600 MG TABLET PO ×2 (01:20→09:22)
[2025-07-02] MEDS: DOCUSATE SODIUM 100 MG CAPSULE PO (05:28)
--- NOTE | 2025-07-02 05:51 | P.PNOB_ITS ---
OB - PN: Subj Subjective Date/time seen: 07/02/25 05:51 Patient comments: no complaints, pain well controlled, tolerating diet and flatus present baby status: doing well OB - PN: Obj Data Labs 07/01/25 04:11 OB - PN A/P Assessment and Plan (1) Term : Code(s): Z34.90 - Encounter for supervision of normal , unspecified, unspecified trimester Status: Acute Plan home Time Spent With Patient Time: Total time spent is greater than 50% in coordination of care (as documented) at patient's floor/unit and/or counseling patient: Review of Systems 2 Review of Systems: not repeated day of surgery; patient states no changes in status Exam 2 Const: General: cooperative, healthy appearing and comfortable Nutritional Appearance: average body habitus Orientation/consciousness: oriented to person, oriented to place and oriented to time HENMT: Head: normal to inspection Resp: Effort & Inspection: normal respiratory effort Cardio: Rate: regular rate Rhythm: regular rhythm Heart sounds: S1 normal heart sound present and S2 normal heart sound present GI: Inspection: normal to inspection (Gravid soft uterus) : External Female Exam: normal external appearance
[2025-07-02 08:45] VITALS: BP 112/71; PULSE 77; RESP 16; TEMP 36.9; O2SAT 98
[2025-07-02] MEDS: SIMETHICONE 80 MG TAB.CHEW PO (09:22)
--- NOTE | 2025-07-02 10:45 | PC.NURSE ---
Patient viewed the discharge video Mother & Baby Care, The First Two Weeks. Patient was given the opportunity and encouraged to ask questions. Patient verbalized understanding of information shared and has been given the mother/baby guide for home reference.
[2025-07-05 09:24] VITALS: BP 121/74; PULSE 82; RESP 18; TEMP 36.9; O2SAT 100
== END 2025-07-02 13:00 | disposition home or self-care (01) | DRG 788 ==
LOC: ANHLDR 07-05 09:41 → ANHOB2 07-05 09:41
PROVIDERS: Admitting Provider Obstetrics & Gynecology; PCP Obstetrics & Gynecology Gynecology; Visit Provider Obstetrics & Gynecology
PROC: 10D00Z1 Extraction of Products of Conception, Low, Open Approach (ICD-10-PCS; CPT 59514; principal; 2025-06-30 07:30)
DX: O34.219 Maternal care for unspecified type scar from previous cesarean delivery (principal); O77.0 Labor and delivery complicated by meconium in amniotic fluid; Z3A.39 39 weeks gestation of pregnancy; Z37.0 Single live birth
CPT/HCPCS: 36415; 85025; 85027; 86593; 86850; 86900; 86901; J0690; A9270; J1100; J1885; J2274; J2371; J2405; J2590; J7120